=== PATIENT | female | born 1995 | race American Indian/Alaskan Native ===

== ENCOUNTER 2021-07-24 17:49 | Emergency (ER) | payer SELFPAY ==
[2021-07-24 17:53] VITALS: BP 148/74
[2021-07-24 21:26] LABS: Bilirubin,Urine Negative (Negative); Color,Urine Yellow (Yellow); HCG Qualitative,Urine Positive (Negative)
[2021-07-24 21:27] LABS: Blood,Urine Moderate (Negative); Urobilinogen,Urine < 0.2 mg/dL (<2.0)
[2021-07-24 21:36] LABS: Bacteria,Urine 4+ /HPF (Negative); Mucus,Urine 3+ /HPF
[2021-07-24] MEDS ORDERED: LIDOCAINE-MPF (1%) 10 MG/1 ML VIAL 5 ML INFILTRATI ONE (21:40)
[2021-07-24] MEDS ORDERED: ACETAMINOPHEN 500 MG TAB PO ONE (21:41)
[2021-07-24 22:09] LABS: Basophils % (Auto) 0.4 % (0.0-1.8); Eosinophils # (Auto) 0.1 K/mm3 (0.0-0.4); Eosinophils % (Auto) 2.3 % (0.0-4.3); Hematocrit 39.8 % (30.3-42.9); Hemoglobin 13.8 gm/dl (10.1-14.3); Lymphocytes # (Auto) 1.8 K/mm3 (1.2-5.4); Lymphocytes % (Auto) 39.9 % (13.4-35.0); Mean Corpuscular HGB Conc 35 % (30-34); Mean Corpuscular Volume 88 fl (79-97); Monocytes # (Auto) 0.4 K/mm3 (0.0-0.8); Monocytes % (Auto) 7.8 % (0.0-7.3); Platelet Count 243 K/mm3 (140-440); Red Blood Count 4.52 M/mm3 (3.65-5.03); Red Cell Distribution Width 15.1 % (13.2-15.2)
[2021-07-24 22:24] LABS: Alanine Aminotransferase 8 units/L (7-56); Albumin 4.4 g/dL (3.9-5); Blood Urea Nitrogen 5 mg/dL (7-17); Calcium 9.7 mg/dL (8.4-10.2); Hemolysis Index 12
[2021-07-24 22:29] LABS: BUN/Creatinine Ratio 10
--- NOTE | 2021-07-24 22:37 | Ultrasound Report ---
ULTRASOUND OBSTETRIC INDICATION / CLINICAL INFORMATION: Pelvic pain, test positive. Clinical Gestational Age (GA) in weeks, days: 6, 2 TECHNIQUE: Transabdominal. COMPARISON: None available. FINDINGS: GESTATIONAL SAC: Well-defined oval shape and intrauterine in location. There is a small subchorionic hemorrhage (less than 25%). YOLK SAC: No significant abnormality. EMBRYO/FETUS: No significant abnormality. - [place]-Rump Length = 4.8 cm = 11, 4 weeks, days - Heart Rate, beats per minute (if present) = 159 ADNEXA: No significant abnormality. FREE FLUID: None. ADDITIONAL FINDINGS: None. IMPRESSION: 1. Single, living intrauterine with estimated sonographic age of 11, 4 weeks, days. There is a small (less than 25%) subchorionic hemorrhage. Signer Name: Nagi Cedeño DO Signed: 07/24/2021 10:32 PM Workstation Name: [id number]
--- NOTE | 2021-07-25 00:05 | Emergency Department Report ---
ED Abdominal Pain HPI - General Chief Complaint: Abdominal Pain Stated Complaint: STOMACH DISCOMFORT Source: patient Mode of arrival: Ambulatory Limitations: No Limitations - History of Present Illness Initial Comments: Patient is a nulliparous 25-year-old -[place] female with no past medical history presents to the ED with complaint of acute onset suprapubic pain intermittently for the last 1 week. Patient also complains of persistent nausea and vomiting multiple times a day for the last 2 weeks. Patient states that she missed her menstrual cycle about 2 months ago and suspect that she may be . Patient denies dizziness, syncope, fever, chills, dysuria, urinary frequency and urgency, diarrhea, chest pain or shortness of breath, sore throat, lightheadedness, sore throat or vaginal bleeding and vaginal discharge. MD Complaint: abdominal pain, other (Missed menstrual cycle 5 weeks ago) -: Sudden, week(s) (1) Location: suprapubic Radiation: none Migration to: no migration Severity scale (0 -10): 7 Quality: cramping, sharp Consistency: intermittent Improves With: nothing Worsens With: nothing Associated Symptoms: denies other symptoms, nausea, vomiting, anorexia. denies: diarrhea, fever, chills, dysuria, hematemesis, melena, hematuria, syncope - Related Data LMP Date: 05/24/21 Previous Rx's Medication Instructions Recorded Last Taken Type Acetaminophen [Tylenol] 500 mg PO Q6HR PRN #30 tablet 07/25/21 Unknown Rx Vit 43/Iron/Folic/Dss 1 each PO DAILY #60 tab 07/25/21 Unknown Rx [Atabex EC Caplet] Promethazine [Phenergan] 25 mg PO Q6HR PRN #30 tab 07/25/21 Unknown Rx Promethazine [Phenergan] 25 mg OR Q6HR PRN #20 supp.rect 07/25/21 Unknown Rx cephALEXin [Keflex] 500 mg PO Q8HR #30 cap 07/25/21 Unknown Rx Allergies Allergy/AdvReac Type Severity Reaction Status Date / Time Fish Containing Products Allergy Unknown Verified 07/24/21 17:54 minto Allergy Unknown Verified 07/24/21 17:54 peanut Allergy Unknown Verified 07/24/21 17:54 ED Review of Systems ROS: Stated complaint: STOMACH DISCOMFORT Other details as noted in HPI Constitutional: denies: chills, fever Eyes: denies: eye pain, eye discharge, vision change ENT: denies: ear pain, throat pain Respiratory: denies: cough, shortness of breath, wheezing Cardiovascular: denies: chest pain, palpitations Endocrine: no symptoms reported Gastrointestinal: abdominal pain (suprapubic), nausea, vomiting. denies: diarrhea Genitourinary: denies: urgency, dysuria, discharge Musculoskeletal: denies: back pain, joint swelling, arthralgia Skin: denies: rash, lesions Neurological: denies: headache, weakness, paresthesias Psychiatric: denies: anxiety, depression Hematological/Lymphatic: denies: easy bleeding, easy bruising ED Past Medical Hx - Medications Home Medications: Home Medications Medication Instructions Recorded Confirmed Last Taken Type Acetaminophen [Tylenol] 500 mg PO Q6HR PRN #30 tablet 07/25/21 Unknown Rx Vit 43/Iron/Folic/Dss 1 each PO DAILY #60 tab 07/25/21 Unknown Rx [Atabex EC Caplet] Promethazine [Phenergan] 25 mg PO Q6HR PRN #30 tab 07/25/21 Unknown Rx Promethazine [Phenergan] 25 mg OR Q6HR PRN #20 supp.rect 07/25/21 Unknown Rx cephALEXin [Keflex] 500 mg PO Q8HR #30 cap 07/25/21 Unknown Rx ED Physical Exam - General Limitations: No Limitations General appearance: alert, in no apparent distress - Head Head exam: Present: atraumatic, normocephalic, normal inspection - Eye Eye exam: Present: normal appearance, PERRL, EOMI Pupils: Present: normal accommodation - ENT ENT exam: Present: normal exam, normal orophraynx, mucous membranes moist, TM's normal bilaterally, normal external ear exam - Neck Neck exam: Present: normal inspection, full ROM. Absent: tenderness - Respiratory Respiratory exam: Present: normal lung sounds bilaterally. Absent: respiratory distress, wheezes, rales, rhonchi, chest wall tenderness, accessory muscle use, decreased breath sounds, prolonged expiratory - Cardiovascular Cardiovascular Exam: Present: regular rate, normal rhythm, normal heart sounds. Absent: systolic murmur, diastolic murmur, rubs, gallop - GI/Abdominal GI/Abdominal exam: Present: soft, tenderness (Palpable mild suprapubic tenderness), normal bowel sounds. Absent: guarding, rebound, hyperactive bowel sounds, hypoactive bowel sounds, organomegaly, mass - Extremities Exam Extremities exam: Present: normal inspection, full ROM, normal capillary refill. Absent: tenderness, pedal edema, joint swelling, calf tenderness - Back Exam Back exam: Present: normal inspection, full ROM. Absent: tenderness, CVA tenderness (R), CVA tenderness (L), muscle spasm, paraspinal tenderness, vertebral tenderness, rash noted - Neurological Exam Neurological exam: Present: alert, oriented X3, CN II-XII intact, normal gait, reflexes normal - Psychiatric Psychiatric exam: Present: normal affect, normal mood - Skin Skin exam: Present: warm, dry, intact, normal color. Absent: rash ED Course Vital Signs 07/24/21 17:51 Temperature 97.4 F L Pulse Rate 93 H Respiratory 16 Rate Blood Pressure 148/74 [Right] O2 Sat by Pulse 99 Oximetry ED Medical Decision Making - Lab Data Result diagrams: 07/24/21 21:43 07/24/21 21:43 - Radiology Data Radiology results: report reviewed, image reviewed [address] [address] Ultrasound Report Signed Patient: ANDRIA ROACH MR#: [id number] : 1995 Acct:[id number] Age/Sex: 25 / F ADM Date: 07/24/21 Loc: ED Attending Dr: Ordering Physician: FRANKIE FREED Date of Service: 07/24/21 Procedure(s): US OB <= 14 weeks fetus Accession Number(s): [id number] cc: FRANKIE FREED ULTRASOUND OBSTETRIC INDICATION / CLINICAL INFORMATION: Pelvic pain, test positive. Clinical Gestational Age (GA) in weeks, days: 6, 2 TECHNIQUE: Transabdominal. COMPARISON: None available. FINDINGS: GESTATIONAL SAC: Well-defined oval shape and intrauterine in location. There is a small subchorionic hemorrhage (less than 25%). YOLK SAC: No significant abnormality. EMBRYO/FETUS: No significant abnormality. - [place]-Rump Length = 4.8 cm = 11, 4 weeks, days - Heart Rate, beats per minute (if present) = 159 ADNEXA: No significant abnormality. FREE FLUID: None. ADDITIONAL FINDINGS: None. IMPRESSION: 1. Single, living intrauterine with estimated sonographic age of 11, 4 weeks, days. There is a small (less than 25%) subchorionic hemorrhage. Signer Name: Nagi Suarez DO Signed: 07/24/2021 10:32 PM Workstation Name: [id number] Transcribed By: BREN Dictated By: NAGI SUAREZ DO Electronically Authenticated By: NAGI SUAREZ DO Signed Date/Time: 07/24/212231 DD/ 29 TD/TT: - Medical Decision Making This is a nulliparous 25-year-old -[place] female with no past medical history presents to the ED with complaint of acute onset suprapubic pain intermittently for the last 1 week. Patient also complains of persistent nausea and vomiting multiple times a day for the last 2 weeks. Patient states that she missed her menstrual cycle about 2 months ago and suspect that she may be . In the ED, patient is alert and oriented x3 and is not in any distress. Lab test results were reviewed and are all nonactionable and unremarkable except for urinalysis that showed significant urinary [place] [id number]. Transvaginal ultrasound showed a single, living intrauterine with estimated sonographic age of 11, 4 weeks, days with heart rate of 159 bpm. There is a small (less than 25%) subchorionic hemorrhage. Patient was treated for pain in the ED with Tylenol and also given Rocephin 1 g intramuscular injection. On reevaluation, patient felt better and was discharged home on medications and advised to follow-up with her [facility] physician in 5 to 7 days for reevaluation or return to the ED immediately if symptoms get worse. - Differential Diagnosis UTI; ectopic ; ovarian cyst; constipation; dysmenorrhea Critical care attestation.: If time is entered above; I have spent that time in minutes in the direct care of this critically ill patient, excluding procedure time. ED Disposition Clinical Impression: Hyperemesis gravidarum, Abdominal pain during in first trimester, Acute urinary tract infection, test positive for normal first in first trimester Disposition: HOME / SELF CARE / HOMELESS Is pt being admited?: No Does the pt Need Aspirin: No Condition: Stable Instructions: Abdominal Pain During , [id number], First Trimester of , [id number], Hyperemesis Gravidarum, Urinary Tract Infection, Adult, [id number], Morning Sickness, and Urinary Tract Infection, Abdominal Pain (ED) Additional Instructions: All lab test results were reviewed and are all nonactionable except for urinalysis which showed significant urinary tract infection and you are hCG quant of 91,173. The transvaginal ultrasound showed a single, living intrauterine with estimated sonographic age of 11 weeks and 4 days with a heart rate of 159 bpm. There was also a small (less than 25%) subchorionic hemorrhage. Therefore maintain a complete pelvic rest with no strenuous or physical and sexual activities, take medication as advised, follow- up with the [facility] physician on-call Dr. Pickett in 3 to 5 days for reevaluation. Return to the ED immediately if symptoms get worse. Prescriptions: Acetaminophen [Tylenol] 500 mg PO Q6HR PRN #30 tablet PRN Reason: Pain , Severe (7-10) Vit 43/Iron/Folic/Dss [Atabex EC Caplet] 1 each PO DAILY #60 tab cephALEXin [Keflex] 500 mg PO Q8HR #30 cap Promethazine [Phenergan] 25 mg PO Q6HR PRN #30 tab PRN Reason: Nausea Promethazine [Phenergan] 25 mg OR Q6HR PRN #20 supp.rect PRN Reason: Nausea and vomiting' Referrals: MAKI PICKETT MD [Staff Physician] - 3-5 Days Forms: Work/School Release Form(ED) Time of Disposition: 00:07 Print Language: GREEK
== END 2021-07-25 00:32 | disposition home or self-care (01) ==
LOC: ED 17:49
DX: O21.1 Hyperemesis gravidarum with metabolic disturbance (principal); O26.891 Other specified pregnancy related conditions, first trimester; R10.9 Unspecified abdominal pain; Z32.01 Encounter for pregnancy test, result positive; Z91.013 Allergy to seafood; Z91.010 Allergy to peanuts
CPT/HCPCS: 36415; 76801; 80053; 81001; 81025; 84702; 85025; 87086; 96372; 99284; J0696; J3490